=== PATIENT | female | born 1940 | race Hispanic/Latino ===

== ENCOUNTER 2023-05-22 16:42 | Inpatient (IN) | payer MEDICARE, MEDICAID ==
[2023-05-22 17:15] LABS: #Basophils 0.1 thou/uL (0.0-0.2); #Eosinphils 0.1 thou/uL (0.0-0.7); #Monocytes 1.5 thou/uL (0.11-0.59); #Neutrophils 11.7 thou/uL (1.40-6.50); %Basophils 0.5 % (0.0-1.0); %Eosinophils 0.6 % (0.0-10.0); %Lymphocytes 21.7 % (21.0-51.0); %Monocytes 8.5 % (0.0-10.0); %Neutrophils 68.2 % (42.0-75.0); Hematocrit 36.1 % (36.0-47.0); Hemoglobin 11.7 g/dL (12.0-16.0); Mean Corpuscular HGB CONC 32.4 g/dL (32.0-36.0); Mean Corpuscular Hemoglobin 30.6 pg (27.0-31.0); Mean Corpuscular Volume 94.5 fl (78.0-98.0); Mean Platelet Volume 9.9 fL (7.4-10.4); Platelet Count 277 10x3/uL (130-400); RBC Distribution Width 17.4 % (11.5-14.5); Red Blood Cell (RBC) Count 3.82 mill/uL (4.20-5.40); White Blood Cell (WBC) Count 17.2 10x3/uL (4.8-10.8)
[2023-05-22 17:26] LABS: Bacteria/HPF 4+ HPF (None Seen); Bilirubin Negative (Negative); Blood, Urine 1+ (Negative); CAUTI Indications for Culture Alt mental st,lethar; Clarity Extra Turbid (Clear); Glucose, Urine (Dipstick) Normal (Negative); Ketone, Urine Negative (Negative); Leukocyte 500 Leu/uL (Negative); Nitrite Negative (Negative); Protein, Urine (Dipstick) 100 mg/dL (Neg-Trace); Specific Gravity, Urine 1.014 (1.002-1.036); Squamous Epithelial 21-50 HPF (0-3); Urobilinogen Normal mg/dL (Less than 2); WBC/HPF Greater than 50 HPF (0-3)
[2023-05-22 17:32] LABS: INR-International Normal Ratio 1.2; PTT 32.1 sec (22.9-36.1); Prothrombin Time 15.6 sec (12.0-14.7)
[2023-05-22 17:34] LABS: Troponin I 0.018 ng/mL (< 0.028)
[2023-05-22 17:35] LABS: ALT (SGPT) 9 U/L (8-55); AST (SGOT) 17 U/L (5-34); Acetaminophen Less than 10 mcg/mL (10.0-30.0); Albumin 3.2 g/dL (3.4-4.8); Alcohol Less than 10.0 mg/dL (Less than 10); Alkaline Phosphatase 78 U/L (40-110); Anion Gap 18 mmol/L (10-20); BUN (Urea Nitrogen) 34 mg/dL (9.8-20.1); Bilirubin, Total 0.5 mg/dL (0.2-1.2); CK (CPK) 11 U/L (29-168); Calc. Creatinine Clearance 0 mL/min (70-130); Calcium 8.6 mg/dL (7.8-10.44); Carbon Dioxide 24 mmol/L (23-31); Chloride 104 mmol/L (98-107); Estimated GFR 31; Globulin 3.4 g/dL (2.4-3.5); Glucose 89 mg/dL (83-110); Lipase 23 U/L (8-78); Potassium 4.3 mmol/L (3.5-5.1); Protein, Total 6.6 g/dL (5.8-8.1); Salicylate Less than 8.0 mg/dL (15.0-30.0); Sodium 142 mmol/L (136-145)
[2023-05-22 17:40] LABS: Urine Culture Reflex Yes Yes
[2023-05-22 17:55] LABS: SARS-CoV-2 NAA Rapid Test Not Detected (NotDetected)
[2023-05-22] MEDS ORDERED: Vancomycin 1 GM/200 ML (FROZEN) BAG ONE (18:02)
[2023-05-22] MEDS ORDERED: LevoFLOXacin 750 mg/D5W 150 ml Premix Bag ONE (18:02)
[2023-05-22 20:17] LABS: Lactic Acid 2.6 mmol/L (0.5-2.2)
[2023-05-22] MEDS ORDERED: Ondansetron ODT 4 MG TAB PO PRN (23:38)
[2023-05-22] MEDS ORDERED: Dextrose 5% in Water 1,000 ML IV PRN (23:40)
[2023-05-22] MEDS ORDERED: HumaLOG 300 UNITS/3 ML VIAL SC PRN ×2 (23:40)
[2023-05-22] MEDS ORDERED: Glucagon 1 MG/ML KIT IM PRN (23:40)
[2023-05-22] MEDS ORDERED: Dextrose 50% Abboject 50 ML SYRINGE SLOW IVP PRN (23:40)
[2023-05-22] MEDS ORDERED: Vancomycin 1 GM in Sodium Chloride 0.9% 500 ML IVPB SCH (23:45)
[2023-05-23] MEDS ORDERED: Albumin 25% 25 GM (100 mL) BOT IVPB SCH (02:30)
[2023-05-23] MEDS: metroNIDAZOLE 500 MG in Premix 1 BAG IVPB SCH ×3 (02:33→18:20)
[2023-05-23] MEDS ORDERED: Sodium Chloride 0.9% 500 ML IV SCH (03:00)
[2023-05-23] MEDS ORDERED: Mineral Oil ENEMA PR SCH (03:15)
[2023-05-23 03:32] VITALS: BMI 28.4
[2023-05-23] MEDS ORDERED: Vancomycin Dose by Levels Sliding Scale (Wt <71) FS SCH (04:00)
[2023-05-23] MEDS ORDERED: NOREPINEPHRINE 8 MG/250 ML-D5W 250 ML ONE (04:02)
[2023-05-23 04:32] LABS: #Basophils 0.1 thou/uL (0.0-0.2); #Eosinphils 0.3 thou/uL (0.0-0.7); #Neutrophils 8.4 thou/uL (1.40-6.50); %Basophils 0.8 % (0.0-1.0); %Eosinophils 2.4 % (0.0-10.0); %Monocytes 8.2 % (0.0-10.0); Hematocrit 29.3 % (36.0-47.0); Hemoglobin 9.2 g/dL (12.0-16.0); Mean Corpuscular HGB CONC 31.4 g/dL (32.0-36.0); Mean Corpuscular Hemoglobin 30.6 pg (27.0-31.0); Mean Corpuscular Volume 97.3 fl (78.0-98.0); Mean Platelet Volume 9.9 fL (7.4-10.4); Platelet Count 226 10x3/uL (130-400); RBC Distribution Width 17.5 % (11.5-14.5); Red Blood Cell (RBC) Count 3.01 mill/uL (4.20-5.40); White Blood Cell (WBC) Count 12.7 10x3/uL (4.8-10.8)
[2023-05-23 04:49] LABS: Bilirubin Negative (Negative); Blood, Urine Negative (Negative); CAUTI Indications for Culture Alt mental st,lethar; Clarity Clear (Clear); Glucose, Urine (Dipstick) Normal (Negative); Ketone, Urine Negative (Negative); Leukocyte 250 Leu/uL (Negative); Nitrite Negative (Negative); Protein, Urine (Dipstick) Negative (Neg-Trace); RBC/HPF 0-3 HPF (0-3); Specific Gravity, Urine 1.007 (1.002-1.036); Squamous Epithelial 0-3 HPF (0-3); Urobilinogen Normal mg/dL (Less than 2); WBC/HPF Greater than 50 HPF (0-3); pH, Urine 6.5 (5.0-9.0)
[2023-05-23 04:54] LABS: Bacteria/HPF 1+ HPF (None Seen)
[2023-05-23 05:01] LABS: ALT (SGPT) Less than 7 U/L (8-55); AST (SGOT) 13 U/L (5-34); Albumin 3.2 g/dL (3.4-4.8); Alkaline Phosphatase 55 U/L (40-110); Anion Gap 15 mmol/L (10-20); BUN (Urea Nitrogen) 28 mg/dL (9.8-20.1); Bilirubin, Total 0.6 mg/dL (0.2-1.2); Calc. Creatinine Clearance 37 mL/min (70-130); Calcium 7.7 mg/dL (7.8-10.44); Carbon Dioxide 22 mmol/L (23-31); Chloride 109 mmol/L (98-107); Estimated GFR 44; Globulin 2.5 g/dL (2.4-3.5); Glucose 89 mg/dL (83-110); Potassium 3.4 mmol/L (3.5-5.1); Protein, Total 5.7 g/dL (5.8-8.1); Sodium 143 mmol/L (136-145)
[2023-05-23] MEDS ORDERED: NOREPINEPHRINE 8 MG/250 ML-D5W 250 ML IVPB SCH (05:30)
[2023-05-23] MEDS: Dextrose 10% in Water 1,000 ML IV SCH (05:38)
[2023-05-23] MEDS: Famotidine/PF 20 mg/2ml Vial SLOW IVP SCH (09:36)
[2023-05-23] MEDS: Cefepime 1 GM in Sodium Chloride 0.9% 100 ML IVPB SCH ×2 (09:36→21:04)
[2023-05-23] MEDS: Bupropion 150 MG SR.TAB PO SCH ×2 (09:37→19:15)
[2023-05-23] MEDS: Enoxaparin 30 MG (0.3 mL) SYRINGE SC SCH (09:37)
[2023-05-23] MEDS: Senokot S 8.6-50 MG TAB PO SCH ×2 (09:37→19:16)
[2023-05-23] MEDS: Aspirin Chewable 81 MG TAB PO SCH (09:37)
[2023-05-23] MEDS: Cyanocobalamin (Vitamin B-12) 1,000 MCG TAB PO SCH (09:37)
[2023-05-23] MEDS: Polyethylene Glycol 3350 17 GM Packet PO SCH (09:38)
[2023-05-23 16:44] LABS: Hemoglobin A1c 6.3 % (4.0-6.0)
[2023-05-23] MEDS ORDERED: Lactated Ringer's 1,000 ML IV SCH (18:00)
[2023-05-23] MEDS: DULoxetine 60 MG CAP PO SCH (19:15)
[2023-05-23] MEDS: Simvastatin 10 MG TAB PO SCH (19:16)
[2023-05-23 20:40] LABS: Vancomycin, Random 7.2 ug/mL (See Comment)
[2023-05-23] MEDS ORDERED: Vancomycin HCl 750 MG in Sodium Chloride 0.9% 250 ML 250 ML IVPB SCH (21:00)
[2023-05-24] MEDS: metroNIDAZOLE 500 MG in Premix 1 BAG IVPB SCH ×3 (01:51→17:34)
[2023-05-24] MEDS: Dextrose 10% in Water 1,000 ML IV SCH (05:09)
[2023-05-24 07:45] LABS: #Basophils 0.1 thou/uL (0.0-0.2); #Eosinphils 0.5 thou/uL (0.0-0.7); #Monocytes 0.6 thou/uL (0.11-0.59); #Neutrophils 5.3 thou/uL (1.40-6.50); %Basophils 0.7 % (0.0-1.0); %Eosinophils 6.1 % (0.0-10.0); %Lymphocytes 22.1 % (21.0-51.0); %Monocytes 6.7 % (0.0-10.0); %Neutrophils 63.8 % (42.0-75.0); Hematocrit 33.8 % (36.0-47.0); Hemoglobin 10.9 g/dL (12.0-16.0); Mean Corpuscular HGB CONC 32.2 g/dL (32.0-36.0); Mean Corpuscular Hemoglobin 30.8 pg (27.0-31.0); Mean Corpuscular Volume 95.5 fl (78.0-98.0); Mean Platelet Volume 10.2 fL (7.4-10.4); Platelet Count 219 10x3/uL (130-400); RBC Distribution Width 16.7 % (11.5-14.5); Red Blood Cell (RBC) Count 3.54 mill/uL (4.20-5.40); White Blood Cell (WBC) Count 8.3 10x3/uL (4.8-10.8)
[2023-05-24 08:16] LABS: ALT (SGPT) 9 U/L (8-55); AST (SGOT) 13 U/L (5-34); Albumin 3.7 g/dL (3.4-4.8); Alkaline Phosphatase 61 U/L (40-110); Anion Gap 12 mmol/L (10-20); BUN (Urea Nitrogen) 12 mg/dL (9.8-20.1); Bilirubin, Total 0.6 mg/dL (0.2-1.2); Calc. Creatinine Clearance 62 mL/min (70-130); Carbon Dioxide 25 mmol/L (23-31); Chloride 105 mmol/L (98-107); Estimated GFR 85; Glucose 150 mg/dL (83-110); Potassium 2.6 mmol/L (3.5-5.1); Protein, Total 6.7 g/dL (5.8-8.1); Sodium 139 mmol/L (136-145)
[2023-05-24] MEDS: Enoxaparin 30 MG (0.3 mL) SYRINGE SC SCH (08:39)
[2023-05-24] MEDS: Polyethylene Glycol 3350 17 GM Packet PO SCH (08:40)
[2023-05-24] MEDS: Cefepime 1 GM in Sodium Chloride 0.9% 100 ML IVPB SCH ×2 (08:40→20:01)
[2023-05-24] MEDS: Famotidine/PF 20 mg/2ml Vial SLOW IVP SCH (08:40)
[2023-05-24] MEDS: Senokot S 8.6-50 MG TAB PO SCH ×2 (08:41→20:01)
[2023-05-24] MEDS: Bupropion 150 MG SR.TAB PO SCH ×2 (08:41→20:01)
[2023-05-24] MEDS: Aspirin Chewable 81 MG TAB PO SCH (08:41)
[2023-05-24] MEDS: Cyanocobalamin (Vitamin B-12) 1,000 MCG TAB PO SCH (08:41)
[2023-05-24 10:38] LABS: Magnesium 1.5 mg/dL (1.6-2.6)
[2023-05-24] MEDS: Potassium Chloride 20 MEQ in Premix 1 BAG IVPB SCH ×4 (13:02→19:51)
[2023-05-24] MEDS: Acetaminophen 325 MG TAB PO PRN ×2 (13:06→19:53)
[2023-05-24] MEDS: DULoxetine 60 MG CAP PO SCH (20:01)
[2023-05-24] MEDS: Simvastatin 10 MG TAB PO SCH (20:01)
[2023-05-24] MEDS ORDERED: Vancomycin HCl 750 MG in Sodium Chloride 0.9% 250 ML 250 ML IVPB SCH (21:45)
[2023-05-24] MEDS: Vancomycin (BATCH) 1.25 GM in Premix 1 BAG IVPB SCH (22:58)
[2023-05-25] MEDS: metroNIDAZOLE 500 MG in Premix 1 BAG IVPB SCH ×3 (01:39→17:37)
[2023-05-25 04:15] LABS: #Basophils 0.1 thou/uL (0.0-0.2); #Eosinphils 0.4 thou/uL (0.0-0.7); #Monocytes 0.7 thou/uL (0.11-0.59); #Neutrophils 4.7 thou/uL (1.40-6.50); %Basophils 0.8 % (0.0-1.0); %Eosinophils 4.1 % (0.0-10.0); %Lymphocytes 31.9 % (21.0-51.0); %Monocytes 7.8 % (0.0-10.0); %Neutrophils 54.8 % (42.0-75.0); Hemoglobin 11.6 g/dL (12.0-16.0); Mean Corpuscular HGB CONC 32.2 g/dL (32.0-36.0); Mean Corpuscular Hemoglobin 30.2 pg (27.0-31.0); Mean Corpuscular Volume 93.8 fl (78.0-98.0); Platelet Count 257 10x3/uL (130-400); RBC Distribution Width 16.1 % (11.5-14.5); Red Blood Cell (RBC) Count 3.84 mill/uL (4.20-5.40); White Blood Cell (WBC) Count 8.6 10x3/uL (4.8-10.8)
[2023-05-25] MEDS: Dextrose 10% in Water 1,000 ML IV SCH (04:36)
[2023-05-25 05:02] LABS: ALT (SGPT) 8 U/L (8-55); AST (SGOT) 14 U/L (5-34); Albumin 3.8 g/dL (3.4-4.8); Alkaline Phosphatase 71 U/L (40-110); Anion Gap 17 mmol/L (10-20); BUN (Urea Nitrogen) 10 mg/dL (9.8-20.1); Bilirubin, Total 0.6 mg/dL (0.2-1.2); Calc. Creatinine Clearance 70 mL/min (70-130); Calcium 9.1 mg/dL (7.8-10.44); Carbon Dioxide 22 mmol/L (23-31); Chloride 103 mmol/L (98-107); Estimated GFR 89; Globulin 3.3 g/dL (2.4-3.5); Glucose 153 mg/dL (83-110); Potassium 3.1 mmol/L (3.5-5.1); Protein, Total 7.1 g/dL (5.8-8.1); Sodium 139 mmol/L (136-145)
[2023-05-25] MEDS: Cefepime 1 GM in Sodium Chloride 0.9% 100 ML IVPB SCH ×2 (08:47→23:14)
[2023-05-25] MEDS: Polyethylene Glycol 3350 17 GM Packet PO SCH (08:47)
[2023-05-25] MEDS: Enoxaparin 40 MG (0.4 mL) SYRINGE SC SCH (08:47)
[2023-05-25] MEDS: Famotidine/PF 20 mg/2ml Vial SLOW IVP SCH (08:48)
[2023-05-25] MEDS: Senokot S 8.6-50 MG TAB PO SCH ×2 (08:48→23:14)
[2023-05-25] MEDS: Aspirin Chewable 81 MG TAB PO SCH (08:48)
[2023-05-25] MEDS: Cyanocobalamin (Vitamin B-12) 1,000 MCG TAB PO SCH (08:48)
[2023-05-25] MEDS: Bupropion 150 MG SR.TAB PO SCH ×2 (08:48→23:14)
[2023-05-25] MEDS ORDERED: Magnesium 2 GM/50 ML(in water) 2 GM in Premix 1 BAG IVPB SCH (10:00)
[2023-05-25] MEDS ORDERED: Bisacodyl 10 MG SUPP PR SCH (10:15)
[2023-05-25] MEDS: Potassium Chloride 20 MEQ in Premix 1 BAG IVPB SCH ×3 (10:51→14:19)
[2023-05-25] MEDS: Simvastatin 10 MG TAB PO SCH (23:14)
[2023-05-25] MEDS: DULoxetine 60 MG CAP PO SCH (23:14)
[2023-05-25] MEDS: Vancomycin (BATCH) 1.25 GM in Premix 1 BAG IVPB SCH (23:55)
[2023-05-26] MEDS: Vancomycin (BATCH) 1.25 GM in Premix 1 BAG IVPB SCH ×2 (01:40→22:50)
[2023-05-26 04:48] LABS: #Basophils 0.1 thou/uL (0.0-0.2); #Eosinphils 0.5 thou/uL (0.0-0.7); #Monocytes 0.8 thou/uL (0.11-0.59); #Neutrophils 5.5 thou/uL (1.40-6.50); %Basophils 0.8 % (0.0-1.0); %Eosinophils 4.9 % (0.0-10.0); %Lymphocytes 28.6 % (21.0-51.0); %Monocytes 8.7 % (0.0-10.0); %Neutrophils 56.6 % (42.0-75.0); Hematocrit 37.8 % (36.0-47.0); Mean Corpuscular HGB CONC 31.7 g/dL (32.0-36.0); Mean Corpuscular Hemoglobin 30.2 pg (27.0-31.0); Mean Platelet Volume 10.5 fL (7.4-10.4); Platelet Count 244 10x3/uL (130-400); RBC Distribution Width 16.4 % (11.5-14.5); Red Blood Cell (RBC) Count 3.98 mill/uL (4.20-5.40); White Blood Cell (WBC) Count 9.7 10x3/uL (4.8-10.8)
[2023-05-26 06:16] LABS: ALT (SGPT) 9 U/L (8-55); AST (SGOT) 15 U/L (5-34); Albumin 3.7 g/dL (3.4-4.8); Alkaline Phosphatase 74 U/L (40-110); Anion Gap 15 mmol/L (10-20); BUN (Urea Nitrogen) 12 mg/dL (9.8-20.1); Bilirubin, Total 0.4 mg/dL (0.2-1.2); Calc. Creatinine Clearance 69 mL/min (70-130); Calcium 8.9 mg/dL (7.8-10.44); Carbon Dioxide 19 mmol/L (23-31); Chloride 106 mmol/L (98-107); Estimated GFR 88; Globulin 3.4 g/dL (2.4-3.5); Glucose 179 mg/dL (83-110); Potassium 3.4 mmol/L (3.5-5.1); Protein, Total 7.1 g/dL (5.8-8.1); Sodium 137 mmol/L (136-145)
[2023-05-26] MEDS: Bupropion 150 MG SR.TAB PO SCH ×2 (09:40→20:02)
[2023-05-26] MEDS: Aspirin Chewable 81 MG TAB PO SCH (09:40)
[2023-05-26] MEDS: Cefepime 1 GM in Sodium Chloride 0.9% 100 ML IVPB SCH ×2 (09:41→20:01)
[2023-05-26] MEDS: Enoxaparin 40 MG (0.4 mL) SYRINGE SC SCH (09:41)
[2023-05-26] MEDS: Cyanocobalamin (Vitamin B-12) 1,000 MCG TAB PO SCH (09:41)
[2023-05-26] MEDS: Famotidine/PF 20 mg/2ml Vial SLOW IVP SCH (09:41)
[2023-05-26] MEDS: metroNIDAZOLE 500 MG in Premix 1 BAG IVPB SCH ×3 (09:42→17:03)
[2023-05-26] MEDS: Senokot S 8.6-50 MG TAB PO SCH ×2 (09:42→20:02)
[2023-05-26] MEDS: Polyethylene Glycol 3350 17 GM Packet PO SCH (09:42)
[2023-05-26] MEDS: Dextrose 10% in Water 1,000 ML IV SCH (09:42)
[2023-05-26] MEDS: Acetaminophen 325 MG TAB PO PRN ×2 (16:33→20:34)
[2023-05-26] MEDS: DULoxetine 60 MG CAP PO SCH (20:02)
[2023-05-26] MEDS: Simvastatin 10 MG TAB PO SCH (20:02)
[2023-05-26 22:06] LABS: Vancomycin, Trough 12.3 ug/mL
[2023-05-27] MEDS: metroNIDAZOLE 500 MG in Premix 1 BAG IVPB SCH ×3 (02:08→16:51)
[2023-05-27] MEDS: Acetaminophen 325 MG TAB PO PRN ×2 (04:28→15:35)
[2023-05-27 06:24] LABS: #Basophils 0.1 thou/uL (0.0-0.2); #Eosinphils 0.5 thou/uL (0.0-0.7); #Monocytes 0.8 thou/uL (0.11-0.59); #Neutrophils 4.2 thou/uL (1.40-6.50); %Basophils 1.3 % (0.0-1.0); %Monocytes 9.6 % (0.0-10.0); %Neutrophils 47.5 % (42.0-75.0); Hematocrit 37.1 % (36.0-47.0); Hemoglobin 11.9 g/dL (12.0-16.0); Mean Corpuscular HGB CONC 32.1 g/dL (32.0-36.0); Mean Corpuscular Hemoglobin 29.8 pg (27.0-31.0); Mean Platelet Volume 10.1 fL (7.4-10.4); Platelet Count 283 10x3/uL (130-400); RBC Distribution Width 16.5 % (11.5-14.5); Red Blood Cell (RBC) Count 3.99 mill/uL (4.20-5.40); White Blood Cell (WBC) Count 8.8 10x3/uL (4.8-10.8)
[2023-05-27 06:46] LABS: ALT (SGPT) 10 U/L (8-55); AST (SGOT) 24 U/L (5-34); Albumin 3.6 g/dL (3.4-4.8); Alkaline Phosphatase 76 U/L (40-110); Anion Gap 12 mmol/L (10-20); BUN (Urea Nitrogen) 13 mg/dL (9.8-20.1); Bilirubin, Total 0.4 mg/dL (0.2-1.2); Calc. Creatinine Clearance 75 mL/min (70-130); Calcium 8.7 mg/dL (7.8-10.44); Carbon Dioxide 23 mmol/L (23-31); Chloride 104 mmol/L (98-107); Estimated GFR 90; Globulin 3.3 g/dL (2.4-3.5); Glucose 212 mg/dL (83-110); Potassium 2.8 mmol/L (3.5-5.1); Protein, Total 6.9 g/dL (5.8-8.1); Sodium 136 mmol/L (136-145)
[2023-05-27] MEDS: Polyethylene Glycol 3350 17 GM Packet PO SCH (08:47)
[2023-05-27] MEDS: Cefepime 1 GM in Sodium Chloride 0.9% 100 ML IVPB SCH (08:48)
[2023-05-27] MEDS: Enoxaparin 40 MG (0.4 mL) SYRINGE SC SCH (08:49)
[2023-05-27] MEDS: Senokot S 8.6-50 MG TAB PO SCH (08:50)
[2023-05-27] MEDS: Bupropion 150 MG SR.TAB PO SCH (08:50)
[2023-05-27] MEDS: Famotidine/PF 20 mg/2ml Vial SLOW IVP SCH (08:50)
[2023-05-27] MEDS: Aspirin Chewable 81 MG TAB PO SCH (08:51)
[2023-05-27] MEDS: Dextrose 10% in Water 1,000 ML IV SCH (08:51)
[2023-05-27] MEDS: Cyanocobalamin (Vitamin B-12) 1,000 MCG TAB PO SCH (08:51)
[2023-05-27 09:17] VITALS: TEMP 97.6
[2023-05-27] MEDS ORDERED: Potassium Chloride 20 MEQ in Premix 1 BAG IVPB SCH (10:00)
[2023-05-27 12:56] VITALS: BP 126/84
[2023-05-27] MEDS ORDERED: Famotidine/PF 20 mg/2ml Vial SLOW IVP SCH (21:00)
== END 2023-05-27 19:38 | disposition hospice, inpatient (51) | DRG 871 ==
LOC: ERS 16:42 → IMCU/EMU 23:56 → CCU 05-23 06:26 → T4-A 05-23 16:47
PROVIDERS: ADMIT Internal Medicine; ATTEND Emergency Medicine
PROC: 3E03329 Introduction of Other Anti-infective into Peripheral Vein, Percutaneous Approach (ICD-10-PCS; principal; 2023-05-22)
PROC: 30233J1 Transfusion of Nonautologous Serum Albumin into Peripheral Vein, Percutaneous Approach (ICD-10-PCS; 2023-05-23)
DX: A41.81 Sepsis due to Enterococcus (principal); G93.41 Metabolic encephalopathy; J69.0 Pneumonitis due to inhalation of food and vomit; I50.22 Chronic systolic (congestive) heart failure; N39.0 Urinary tract infection, site not specified; N17.9 Acute kidney failure, unspecified; I13.0 Hypertensive heart and chronic kidney disease with heart failure and stage 1 through stage 4 chronic kidney disease, or unspecified chronic kidney disease; Z66 Do not resuscitate; Z51.5 Encounter for palliative care; R65.20 Severe sepsis without septic shock; F03.90 Unspecified dementia, unspecified severity, without behavioral disturbance, psychotic disturbance, mood disturbance, and anxiety; E11.9 Type 2 diabetes mellitus without complications; E78.5 Hyperlipidemia, unspecified; K59.00 Constipation, unspecified; F32.A Depression, unspecified; E11.649 Type 2 diabetes mellitus with hypoglycemia without coma; N18.9 Chronic kidney disease, unspecified; E11.22 Type 2 diabetes mellitus with diabetic chronic kidney disease; I95.9 Hypotension, unspecified; R13.10 Dysphagia, unspecified; E87.6 Hypokalemia; Z86.73 Personal history of transient ischemic attack (TIA), and cerebral infarction without residual deficits; Z88.2 Allergy status to sulfonamides; Z88.1 Allergy status to other antibiotic agents; Z88.0 Allergy status to penicillin; Z79.899 Other long term (current) drug therapy; Z11.52 Encounter for screening for COVID-19
CPT/HCPCS: 36415; 36416; 70450; 71045; 74018; 74176; 74230; 80053; 80202; 80307; 81001; 82140; 82533; 82550; 83036; 83605; 83690; 83735; 83880; 84145; 84443; 84484; 85025; 85610; 85730; 87040; 87077; 87081; 87086; 87186; 93005; J0692; J1650; J1956; J3370; J3370-JW; J3475; J3480; J3490; J7050; J7120; J7999; P9047; Q0162; S0028